=== PATIENT | male | born 1950 | race Caucasian/White ===

== ENCOUNTER 2021-06-14 21:10 | Inpatient (IN) | payer MEDICARE, OTHER ==
[2021-06-14] MEDS ORDERED: Sodium Chloride 0.9% 10 ML Syringe FLUSH PRN (21:57)
[2021-06-14] MEDS ORDERED: Famotidine 20 MG/2 ML SDV IVPUSH ONE (21:58)
[2021-06-14] MEDS ORDERED: Pantoprazole 40 MG Vial IVPUSH ONE (21:58)
[2021-06-14] MEDS ORDERED: Tamsulosin 0.4 MG Cap.ER PO ONE (22:03)
[2021-06-14] MEDS: Lactated Ringers 1,000 ML IV SCH (22:28)
[2021-06-14] MEDS ORDERED: Sucralfate 1 GM Tab PO ONE (23:06)
[2021-06-14] MEDS ORDERED: Ondansetron 4 MG Tab.DIS PO PRN (23:32)
[2021-06-14] MEDS ORDERED: Acetaminophen 325 MG Tab PO PRN (23:32)
[2021-06-14] MEDS ORDERED: Zolpidem 5 MG Tab PO PRN (23:32)
[2021-06-14] MEDS ORDERED: Lactated Ringers 1,000 ML IV SCH (23:45)
[2021-06-15] MEDS: Lactated Ringers 1,000 ML IV SCH ×3 (01:12→13:35)
[2021-06-15] MEDS: Pantoprazole 40 MG Vial IVPUSH SCH ×3 (01:14→23:00)
[2021-06-15] MEDS ORDERED: Lactated Ringers 500 ML IV SCH (03:30)
[2021-06-15] MEDS: Sucralfate 1 GM Tab PO SCH ×4 (06:58→20:51)
[2021-06-15] MEDS ORDERED: Nicotine 21 MG/24 Hr Patch TRDERM PRN (09:38)
[2021-06-15] MEDS ORDERED: Sodium Chloride 0.9% 250 ML IV SCH (16:30)
[2021-06-15] MEDS ORDERED: Tamsulosin 0.4 MG Cap.ER PO ONE (23:39)
[2021-06-16] MEDS: Lactated Ringers 1,000 ML IV SCH ×2 (02:00→11:39)
[2021-06-16] MEDS: Sucralfate 1 GM Tab PO SCH ×4 (06:45→20:29)
[2021-06-16] MEDS ORDERED: Iopamidol 755 Mg/ML 75 ML Bottle IV ONE (08:44)
[2021-06-16] MEDS ORDERED: Diatrizoate Meglumine/Diatrizoate Sodium 37% 30 ML Bottle PO ONE (08:44)
[2021-06-16] MEDS: Iron Polysaccharides Complex 150 MG Cap PO SCH ×3 (11:07→20:29)
[2021-06-16] MEDS ORDERED: Sodium Chloride 0.9% 250 ML IV SCH (11:15)
[2021-06-16] MEDS: Pantoprazole 40 MG Vial IVPUSH SCH ×2 (11:41→23:33)
[2021-06-16] MEDS: Sodium Chloride 0.9% 250 ML IV SCH ×2 (21:11→23:49)
[2021-06-16] MEDS ORDERED: Furosemide 20 MG/2 ML VIAL IVPUSH ONE (21:16)
[2021-06-17] MEDS ORDERED: Furosemide 20 MG/2 ML VIAL IVPUSH ONE (01:46)
[2021-06-17] MEDS: Sucralfate 1 GM Tab PO SCH ×3 (02:41→11:59)
[2021-06-17] MEDS: Lactated Ringers 1,000 ML IV SCH ×2 (05:08→15:15)
[2021-06-17] MEDS ORDERED: Albuterol/Ipratropium 3.0-0.5 MG/3 ML Neb Soln NEB ONE (06:00)
[2021-06-17] MEDS: Sodium Chloride 0.9% 250 ML IV SCH (07:45)
[2021-06-17] MEDS ORDERED: Sodium Chloride 0.9% 250 ML IV SCH (08:00)
[2021-06-17] MEDS ORDERED: Sodium Chloride 0.9% 10 ML Syringe FLUSH PRN (08:14)
[2021-06-17] MEDS: Iron Polysaccharides Complex 150 MG Cap PO SCH (10:00)
[2021-06-17] MEDS ORDERED: Pantoprazole 80 MG in Sodium Chloride 0.9% 100 ML IV SCH (11:15)
== END 2021-06-17 12:00 | DRG 378 ==
LOC: FB.ED 21:10 → FB.MS 23:29
PROVIDERS: ADMIT Emergency Medicine; ATTEND Family Medicine
PROC: 30233N1 Transfusion of Nonautologous Red Blood Cells into Peripheral Vein, Percutaneous Approach (ICD-10-PCS; principal; 2021-06-15)
DX: K29.71 Gastritis, unspecified, with bleeding (principal); D62 Acute posthemorrhagic anemia; J44.9 Chronic obstructive pulmonary disease, unspecified; N40.1 Benign prostatic hyperplasia with lower urinary tract symptoms; R39.14 Feeling of incomplete bladder emptying; F17.200 Nicotine dependence, unspecified, uncomplicated; Z20.822 Contact with and (suspected) exposure to COVID-19; H54.7 Unspecified visual loss; R56.9 Unspecified convulsions; Z96.649 Presence of unspecified artificial hip joint; Z96.659 Presence of unspecified artificial knee joint; R35.0 Frequency of micturition; Z88.5 Allergy status to narcotic agent; Z88.0 Allergy status to penicillin; Z87.11 Personal history of peptic ulcer disease
CPT/HCPCS: 36415; 80048; 81001; 82272; 85027; 86850; 86900; 86901; 86920 ×4; 86922 ×4; 96374; 96375; 99285; A9270 ×2; C9113; J3490; J7120; U0002; 36430; 51798; 74177; 85014; 85018; 85610; 94640; 99223; 99231; 99239; 99284; J1940; J7050; J7620-GY; P9016; Q9963; Q9967

== ENCOUNTER 2022-01-04 11:04 | Emergency (ER) | payer MEDICARE, OTHER ==
[2022-01-04] MEDS ORDERED: Ondansetron 4 MG Tab.DIS PO ONE (11:07)
[2022-01-04] MEDS ORDERED: Sodium Chloride 0.9% 1,000 ML IV SCH (11:30)
[2022-01-04] MEDS ORDERED: Acetaminophen/HYDROcodone 325-5 MG Tab PO STA (11:39)
[2022-01-04] MEDS ORDERED: Ketorolac 30 MG/ML SDV IVPUSH STA (11:39)
[2022-01-04 11:59] LABS: ESTIMATED GFR 91 mL/min (>60)
[2022-01-04 12:23] VITALS: BP 99/46; PULSE 84
== END 2022-01-04 13:50 | disposition home or self-care (01) ==
LOC: FB.ED 11:04
DX: K52.9 Noninfective gastroenteritis and colitis, unspecified (principal); M19.90 Unspecified osteoarthritis, unspecified site; Z88.6 Allergy status to analgesic agent; Z88.5 Allergy status to narcotic agent; Z88.0 Allergy status to penicillin; Z79.899 Other long term (current) drug therapy; Z20.822 Contact with and (suspected) exposure to COVID-19
CPT/HCPCS: 36415; 71045; 80053; 84484; 85025; 93005; 96361; 96374; 99284-25; A9270-GY; J1885; J7030; Q0162; U0002

== ENCOUNTER 2022-03-19 18:53 | Emergency (ER) | payer MEDICARE, OTHER ==
[2022-03-19] MEDS ORDERED: Sodium Chloride 0.9% 10 ML Syringe FLUSH PRN (19:03)
[2022-03-19] MEDS ORDERED: Morphine 2 MG/ML SYRINGE IVPUSH ONE (19:04)
[2022-03-19] MEDS ORDERED: Ondansetron 4 MG/2 ML SDV IVPUSH ONE (19:04)
[2022-03-19] MEDS ORDERED: Sodium Chloride 0.9% 1,000 ML IV SCH (19:15)
[2022-03-19 19:32] LABS: ESTIMATED GFR 94 mL/min (>60)
[2022-03-19] MEDS ORDERED: Iopamidol 755 Mg/ML 75 ML Bottle IV ONE (19:47)
[2022-03-19] MEDS ORDERED: Pantoprazole 40 MG Vial IVPUSH ONE (21:05)
[2022-03-19] MEDS ORDERED: Pantoprazole 40 MG Vial ONE (21:05)
== END 2022-03-19 21:25 | disposition home or self-care (01) ==
LOC: FB.ED 18:53
DX: K27.9 Peptic ulcer, site unspecified, unspecified as acute or chronic, without hemorrhage or perforation (principal); K29.70 Gastritis, unspecified, without bleeding; K21.9 Gastro-esophageal reflux disease without esophagitis; Z88.0 Allergy status to penicillin; Z88.5 Allergy status to narcotic agent; Z88.8 Allergy status to other drugs, medicaments and biological substances; Z79.899 Other long term (current) drug therapy
CPT/HCPCS: 36415; 74177; 80053; 81001; 82150; 83690; 85025; 96361; 96374; 96375; 99283; 99284-25; C9113; J2270; J2405; J3490; J7030; Q9967

== ENCOUNTER 2022-11-04 19:40 | Emergency (ER) | payer MEDICARE, OTHER ==
[2022-11-04] MEDS ORDERED: Azithromycin 250 MG Tab PO ONE (19:41)
[2022-11-04] MEDS ORDERED: predniSONE 20 MG Tab PO ONE (19:41)
== END 2022-11-04 20:09 | disposition home or self-care (01) ==
LOC: FB.ED 19:40
DX: J44.9 Chronic obstructive pulmonary disease, unspecified (principal); K21.9 Gastro-esophageal reflux disease without esophagitis; F17.210 Nicotine dependence, cigarettes, uncomplicated; Z88.8 Allergy status to other drugs, medicaments and biological substances; Z88.5 Allergy status to narcotic agent; Z88.0 Allergy status to penicillin; Z79.899 Other long term (current) drug therapy
CPT/HCPCS: 99284; A9270-GY; J7512

== ENCOUNTER 2023-09-07 21:10 | Emergency (ER) | payer MEDICARE, OTHER ==
[2023-09-07 21:43] LABS: BASOPHILS PERCENT AUTO 0.1 % (0.3-3.8); EOSINOPHILS PERCENT AUTO 0.1 % (0.1-6.8); HEMATOCRIT 38.1 % (38.3-50.1); HEMOGLOBIN 13.2 g/dL (12.9-17.7); LYMPHOCYTES ABSOLUTE AUTO 0.9 x10-3/uL (0.5-4.5); LYMPHOCYTES PERCENT AUTO 9.8 % (15.8-45.3); MEAN CORPUSCULAR HEMOGLOBIN 31.1 pg (27.0-33.3); MEAN CORPUSCULAR HGB CONC 34.5 g/dL (28.7-35.3); MEAN PLATELET VOLUME 8.1 fL (6.7-11.0); MONOCYTES ABSOLUTE AUTO 0.6 x10-3/uL (0.0-1.2); MONOCYTES PERCENT AUTO 5.8 % (5.5-15.2); NEUTROPHILS ABSOLUTE AUTO 8.2 x10-3/uL (1.7-6.9); NEUTROPHILS PERCENT AUTO 84.2 % (40.3-71.8); PLATELET COUNT,PLT 196 x10(3)uL (117-477); RED BLOOD CELL COUNT 4.23 x10(6)uL (3.90-5.90); RED CELL DISTRIBUTION WIDTH 13.2 % (12.4-15.0); WHITE BLOOD CELL COUNT,WBC 9.7 x10-3/uL (3.2-10.1)
[2023-09-07 21:44] LABS: BASE EXCESS VENOUS,POC 0 mmol/L (-2 - 3+); PCO2 VENOUS,POC 39 mmHg (41-51); PH VENOUS,POC 7.41 pH Units (7.32-7.43)
[2023-09-07 21:45] LABS: BLOOD UREA NITROGEN,BUN 13 mg/dL (7-18); CALCIUM 8.9 mg/dL (8.6-10.2); CARBON DIOXIDE,CO2 28 mmol/L (21-32); CHLORIDE,CL 97 mmol/L (100-110); ESTIMATED GFR 79 mL/min (>60); GLUCOSE RANDOM 123 mg/dL (80-116); POTASSIUM,K 3.5 mmol/L (3.5-5.3); SODIUM,NA 133 mmol/L (135-145)
[2023-09-07 21:57] LABS: A/G RATIO 0.6; ALANINE AMINOTRANSFERASE,ALT 14 U/L (12-36); ALKALINE PHOSPHATASE 146 IU/L (56-112); ASPARTATE AMNIOTRANSFERASE,AST 11 IU/L (5-25); BILIRUBIN TOTAL 0.9 mg/dL (0.1-1.3); MAGNESIUM 1.9 mg/dL (1.8-2.5); PROTEIN TOTAL,TP 7.8 g/dL (6.0-8.0); TROPONIN I 5.1 pg/mL (4.0-60.3)
[2023-09-07 21:59] LABS: C-REACTIVE PROTEIN 15.91 mg/dL (<0.50)
[2023-09-07 23:48] LABS: INFLUENZA A NAA NEGATIVE (NEGATIVE); INFLUENZA B NAA NEGATIVE (NEGATIVE); RESPIRATORY SYNCYTIAL VIR NAA NEGATIVE (NEGATIVE)
[2023-09-07 23:49] LABS: CORONAVIRUS COVID-19 NAA NEGATIVE (NEGATIVE)
[2023-09-08] MEDS: methylPREDNISolone Sodium Succinate 40 MG/1 ML SDV IVPUSH ONE (00:06)
[2023-09-08] MEDS: Albuterol/Ipratropium 3.0-0.5 MG/3 ML Neb Soln NEB ONE (00:06)
[2023-09-08] MEDS: Sodium Chloride 0.9% 10 ML Syringe FLUSH PRN (00:06)
[2023-09-08] MEDS: Levofloxacin 750 MG Tab PO ONE (01:19)
== END 2023-09-08 01:25 | disposition home or self-care (01) ==
LOC: FB.ED 21:10
DX: J44.1 Chronic obstructive pulmonary disease with (acute) exacerbation (principal); J18.9 Pneumonia, unspecified organism; E78.00 Pure hypercholesterolemia, unspecified; F17.200 Nicotine dependence, unspecified, uncomplicated; Z79.899 Other long term (current) drug therapy; Z88.6 Allergy status to analgesic agent; Z88.5 Allergy status to narcotic agent
CPT/HCPCS: 0241U; 36415; 71045; 80053; 83605; 83735; 83880; 84484; 85025; 86140; 93005; 94640; 96374; 99285; A9270; J2920; J3490; J7620

== ENCOUNTER 2025-03-02 12:50 | Emergency (ER) | payer MEDICARE, OTHER ==
[2025-03-02 14:01] LABS: INFLUENZA A NAA NEGATIVE (NEGATIVE); INFLUENZA B NAA NEGATIVE (NEGATIVE); RESPIRATORY SYNCYTIAL VIR NAA NEGATIVE (NEGATIVE)
[2025-03-02 14:04] LABS: CORONAVIRUS COVID-19 NAA POSITIVE (NEGATIVE)
== END 2025-03-02 14:18 | disposition home or self-care (01) ==
LOC: FB.ED 12:50
DX: J44.9 Chronic obstructive pulmonary disease, unspecified (principal); E78.00 Pure hypercholesterolemia, unspecified; K21.9 Gastro-esophageal reflux disease without esophagitis; F17.210 Nicotine dependence, cigarettes, uncomplicated; Z88.6 Allergy status to analgesic agent; Z88.5 Allergy status to narcotic agent; Z88.0 Allergy status to penicillin; Z79.899 Other long term (current) drug therapy
CPT/HCPCS: 71045; 87637; 93005; 94640; 99285; A9270